=== PATIENT | female | born 1945 | race Caucasian/White ===

== ENCOUNTER 2017-09-03 17:03 | Outpatient (CLI) | payer MEDICARE, BC ==
--- NOTE | 2017-09-03 20:48 | CT ---
CT CERVICAL SPINE NONCONTRAST: Date: 09-03-17 HISTORY: 72-year-old female with nontraumatic right sided cervicalgia for six weeks. Comparison: None. FINDINGS: Vertebral body heights are maintained. Alignment is normal. Within limitations of a noncontrast scan, no definite pathology is identified involving the perivertebral spaces. C1-2: No high grade central stenosis. C2-3: Severe DJD of right facet joint. Moderate DJD of left facet joint. No high grade central stenos is or left neural foraminal stenosis. There is mild to moderate right neural foraminal stenosis. Disc space maintained. C3-4: Disc space maintained. Severe DJD of right facet joint. Moderate to severe DJD of left facet stas int. No high grade central stenosis. Bilateral moderate neural foraminal stenosis. C4-5: Disc space maintained. Severe DJD of right facet joint. Mild DJD of left facet joint. No high g rade central stenosis or high grade left neural foraminal stenosis. Moderate right neural foraminal s tenosis. C5-6: Moderate disc space narrowing, endplate irregularity, and anterior endplate osteophytosis that protrudes anteriorly into the prevertebral space. Minimal or mild DJD of bilateral facet joints. Ques tionable central and bilateral paracentral disc herniation (from this level and below it, the content s of the spinal canal become progressively more difficult to evaluate, because of body habitus). No b santos central spinal canal stenosis. Bilateral moderate sized uncinate process osteophytes. No right si ded neural foraminal stenosis. Mild left neural foraminal stenosis. C6-7: Moderate degenerative disc disease, similar to C5-6 level. No high grade neural foraminal steno sis. Normal bilateral facet joints. C7-T1: Mild degenerative disc changes. No neural foraminal stenosis or high grade bony central spinal canal stenosis. Mild to moderate right facet DJD. Moderate left facet DJD. IMPRESSION: 1. Cervical spondylosis: 2. Severe right sided facet osteoarthrosis at upper levels. 3. Moderate degenerative disc disease at C5-6 and C6-7. SHAI Ochoa POS: JEANNETTE
== END 2017-09-03 17:04 | disposition home or self-care (01) ==
LOC: NAV RAD 17:03
PROVIDERS: ATTEND Internal Medicine
DX: R52 Pain, unspecified (principal); M47.892 Other spondylosis, cervical region; M50.322 Other cervical disc degeneration at C5-C6 level; M50.323 Other cervical disc degeneration at C6-C7 level
CPT/HCPCS: 72125

== ENCOUNTER 2019-05-25 11:52 | Emergency (ER) | payer MEDICARE, BC ==
--- NOTE | 2019-05-25 12:37 | RAD ---
EXAM: 3 views of the left foot HISTORY: Foot pain COMPARISON: None FINDINGS: 3 views of the left foot shows no evidence of acute fracture or dislocation. Mild soft tiss ue swelling is seen. Mild degenerative changes are seen in the great toe metatarsophalangeal joint. IMPRESSION: No evidence of acute osseous abnormality.
[2019-05-25] MEDS ORDERED: traMADol HCl 50 MG TAB ONE (13:04)
== END 2019-05-25 13:10 | disposition home or self-care (01) ==
LOC: NAV ERS 11:52
DX: M10.9 Gout, unspecified (principal); E03.9 Hypothyroidism, unspecified; E78.5 Hyperlipidemia, unspecified; E78.00 Pure hypercholesterolemia, unspecified; Z79.899 Other long term (current) drug therapy
CPT/HCPCS: 84550

== ENCOUNTER 2023-06-25 11:59 | Emergency (ER) | payer MEDICARE ==
[2023-06-25] MEDS ORDERED: Dexamethasone 4 mg/ml Vial ONE (12:44)
== END 2023-06-25 13:05 | disposition home or self-care (01) ==
LOC: NAV ERS 11:59
DX: J06.9 Acute upper respiratory infection, unspecified (principal); E03.9 Hypothyroidism, unspecified; E78.00 Pure hypercholesterolemia, unspecified; Z79.899 Other long term (current) drug therapy
CPT/HCPCS: 96372; 99283; J1100

== ENCOUNTER 2023-11-19 09:41 | Emergency (ER) | payer MEDICARE | END 2023-11-19 10:47 | disposition home or self-care (01) | LOC: NAV ERS 09:41 | DX: S76.111A Strain of right quadriceps muscle, fascia and tendon, initial encounter (principal); E11.9 Type 2 diabetes mellitus without complications; E78.00 Pure hypercholesterolemia, unspecified; E03.9 Hypothyroidism, unspecified; Z79.890 Hormone replacement therapy; Z79.899 Other long term (current) drug therapy; X58.XXXA Exposure to other specified factors, initial encounter ==